=== PATIENT | female | born 1960 | race Caucasian/White ===

== ENCOUNTER 2016-07-24 19:54 | Emergency (ER) | payer OTHER ==
--- NOTE | ~2016-07-24 | CT2 ---
[facility] A Service of [facility] RADIOLOGY TEXT RESULTS PATIENT: RENATE HAIDER LOCATION: [facility] : 64 UNIT #: [id number] AGE: [address]: Papo Cortes DO SEX: F ORDER DR: [id number] [facility] [address] [place], [place] [address] [id number] MR#: [id number] Acc #: [id number] NAME: RENATE HAIDER : 1960 SEX: F STUDY DATE/TIME: 07/24/2016 21:24 UNIT: [facility] ROOM: STUDY DESCRIPTION: CT Abd and Pelv W Cont Attending Physician: Papo Cortes D.O. Ordering Physician: Papo Cortes D.O. Primary Care Physician: Lionel Wade M.D. MEDICAL IMAGING REPORT This report is preliminary unless electronic signature is present EXAM CT abdomen and pelvis with contrast HISTORY Lower abdominal pain since 07/19/2016, difficulty urinating. History of cerebral palsy. COMPARISON CT abdomen and pelvis 12/12/2013 FINDINGS Axial images performed through the abdomen and pelvis following IV contrast. Multiplanar reconstructed images reviewed at a workstation. This CT exam was performed with one or more of the following radiation dose reduction techniques: Automatic exposure control, adjustment of mA and/or kV according to patient size, and iterative reconstruction. ABDOMEN: Lung bases unremarkable. There is a small amount of lingular atelectasis. Liver demonstrates mild prominence of the intrahepatic and extrahepatic ducts but unchanged from prior studies and not unexpected in this patient post cholecystectomy. The spleen appears normal. Pancreas, kidneys and adrenal glands are unremarkable. No free air or free fluid. The visualized GI tract appears normal to include the appendix. Retroperitoneum unremarkable. PELVIS: Bladder, uterus and adnexa appear normal. The osseous structures and soft tissues unremarkable. IMPRESSION No acute intraabdominal or intrapelvic pathology identified. In particular, no evidence of kidney stones or obstruction and the appendix is normal. [facility] A Service of [facility] RADIOLOGY TEXT RESULTS PATIENT: RENATE HAIDER LOCATION: [facility] : 64 UNIT #: [id number] AGE: [address]: Papo Cortes DO SEX: F ORDER DR: Dictated by... Talita Win M.D. THIS IS AN ELECTRONICALLY VERIFIED REPORT Talita Win M.D. at 07/25/2016 11:00 PM HIRA/chinedu TD: 07/25/2016 00:32 JOB #: [id number] MEDICAL IMAGING REPORT Page 1 of 1 COPY
[2016-07-24 19:38] LABS: URINE SOURCE CLEAN CATCH
[2016-07-24 19:49] LABS: URINE APPEARANCE CLEAR; URINE BILIRUBIN NEG (NEG); URINE BLOOD NEG (NEG); URINE COLOR YELLOW; URINE GLUCOSE NEG (NEG); URINE KETONE NEG (NEG); URINE LEUKOCYTE ESTERASE TRACE (NEG); URINE NITRATE NEG (NEG); URINE PROTEIN NEG (NEG); URINE SPECIFIC GRAVITY 1.005 (1.003-1.035); URINE UROBILINOGEN 0.2 MG/DL (NEG)
[2016-07-24 19:51] LABS: URBCS1 AUWI 0-2 /[HPF] (0-2); URINE BACTERIA AUWI NEG (NEGATIVE); URINE SQUAMOUS EPITHELIAL CELL NONE SEEN /[HPF]
[~2016-07-24 19:54] MED LIST: CELEXA PO; DEPAKOTE ER PO; DEPAKOTE250 MG PO; HYDROCODON-ACE1 EACH PO; IBUPROFEN400 MG PO; KLONOPIN PO; KLONOPIN0.5 MG PO; PRILOSEC PO; REMERON30 MG PO; SEROQUEL PO; TRAZODONE HCL100 MG PO; TRAZODONE PO; TYLENOL #3 PO; VICODIN PO; ZANAFLEX PO
[2016-07-24 19:56] LABS: CULTURE INDICATED? NO
[2016-07-24 20:08] LABS: BASOPHIL% 0.5 % (0-2.5); EOSINOPHIL# 0.2 X10e3 (0-0.7); EOSINOPHIL% 2.5 % (0.0-7.0); HEMATOCRIT 40.6 % (35.0-45.0); HEMOGLOBIN 13.3 gm/dL (12.0-16.0); LYMPHOCYTE# 2.4 X10e3 (1.0-3.5); LYMPHOCYTE% 34.8 % (17.0-45.0); MEAN CELL VOLUME 96.1 FL (83-96); MEAN CORPUSCULAR HEMOGLOBIN 31.4 PG (28-34); MEAN CORPUSCULAR HGB CONC 32.7 g/dL (30-36); MEAN PLATELET VOLUME 8.7 FL (6.5-11.5); MONOCYTE# 0.5 X10e3 (0-1.0); MONOCYTE% 6.6 % (3.0-12.0); NEUTROPHIL# 3.9 X10e3 (1.5-7.1); NEUTROPHIL% 55.6 % (40-75); PLATELET COUNT 198 X10e3 (140-420); RED BLOOD COUNT 4.22 X10e (3.90-5.30); RED CELL DISTRIBUTION WIDTH 15.1 % (11.0-15.5)
[2016-07-24 20:10] LABS: DIFF IND NO
[2016-07-24 20:23] LABS: INR 0.9; PARTIAL THROMBOPLASTIN TIME 25.9 SECONDS (23.5-31.3); PROTHROMBIN TIME (PATIENT) 9.7 SECONDS (9.6-11.5)
[2016-07-24 20:46] LABS: ALBUMIN SERUM 4.2 g/dL (3.5-5.0); BILIRUBIN, DIRECT 0.1 mg/dL (0.0-0.2); BILIRUBIN,INDIRECT 0.5 mg/dL (0.0-0.9); BILIRUBIN,TOTAL 0.6 mg/dL (0.2-2.0); BUN/CREATININE RATIO 11.11; CREATININE SERUM 0.9 mg/dL (0.6-1.4); GLOM FILT RATE Estimated 72.5 mL/min (>60); POTASSIUM 3.6 mmol/L (3.5-5.1); PROTEIN TOTAL SERUM 7.4 g/dL (6.0-8.3)
== END 2016-07-24 23:40 | disposition home or self-care (01) ==
LOC: CED 19:54
PROVIDERS: Emergency Medicine
DX: R30.0 Dysuria (principal); R10.9 Unspecified abdominal pain; R94.5 Abnormal results of liver function studies; F17.210 Nicotine dependence, cigarettes, uncomplicated; Z90.49 Acquired absence of other specified parts of digestive tract; Z88.8 Allergy status to other drugs, medicaments and biological substances
CPT/HCPCS: 36415; 74177; 80048; 80076; 80164; 81003; 84703; 85025; 85610; 85730; 96372; 99284; J0500; Q9967